=== PATIENT | female | born 1995 | race Caucasian/White ===

== ENCOUNTER → 2022-04-21 | Outpatient (CLI) | payer OTHER ==
[~2022-04-21] VITALS: Ht 165.1 cm; Wt 53.0 kg
[2022-04-21 15:15] VITALS: BP 133/86
[2022-04-21 16:20] VITALS: BP 117/67
== END ==
LOC: AMSURD 14:42
DX: J02.0 Streptococcal pharyngitis (principal)
CPT/HCPCS: J7030